=== PATIENT | male | born 1975 | race Hispanic/Latino ===

== ENCOUNTER 2017-01-27 08:04 | Outpatient (CLI) | payer MEDICARE, MEDICAID ==
--- NOTE | 2017-01-27 09:53 | ULT ---
RENAL ULTRASOUND: DATE: 01/27/17. COMPARISON: None. HISTORY: Uncontrolled hypertension. TECHNIQUE: Multiplanar, tray scale, sonographic imaging of the kidneys and urinary bladder obtained. FINDINGS: The right kidney measures 9.8 x 4.6 x 5.0 cm. The left kidney measures 9.7 x 5.0 x 4.4 cm. There is no renal mass, hydronephrosis, or renal stone seen on either side. The urinary bladder is elongated and prominent, measuring 12 cm in transverse dimension. There is a probable urinary bladder diverticulum posteriorly on the right. IMPRESSION: 1. Bilateral kidneys appear grossly unremarkable. 2. Urinary bladder appears prominent with a posterior urinary bladder diverticulum noted. POS: [facility]
== END 2017-01-27 08:05 | disposition home or self-care (01) ==
LOC: ULT 08:04
PROVIDERS: ATTEND Family Medicine
DX: I10 Essential (primary) hypertension (principal)
CPT/HCPCS: 76770

== ENCOUNTER 2020-03-12 08:11 | Emergency (ER) | payer MEDICARE, MEDICAID ==
[2020-03-12 13:03] LABS: SARS-CoV-2 MS2 Positive; SARS-CoV-2 N Gene Positive; SARS-CoV-2 S Gene Positive; SARS-CoV-2 by NAA DETECTED (NotDetected); SARS-CoV-2 orf1ab Positive
== END 2020-03-12 09:40 | disposition home or self-care (01) ==
LOC: ERS 08:11
DX: U07.1 COVID-19 (principal); Z79.899 Other long term (current) drug therapy; I10 Essential (primary) hypertension
CPT/HCPCS: 99283; U0003; 87635